=== PATIENT | female | born 1950 | race Caucasian/White ===

== ENCOUNTER 2017-08-26 05:37 | Inpatient (IN) ==
[2017-08-26] MEDS ORDERED: Bupivacaine/Epinephrine 0.5% Inj 50 ML Vial ONE (06:04)
[2017-08-26] MEDS ORDERED: ceFAZolin 2 GM Premix Inj 2 GM/50 ML PIGGYBACK IV.SIG ONE (06:05)
[2017-08-26] MEDS ORDERED: Vancomycin Inj 1 GM/200 ML PIGGYBACK IV.SIG ONE (06:08)
[2017-08-26] MEDS ORDERED: Metoprolol Tartrate 25 MG Tablet PO SCH (06:45)
[2017-08-26] MEDS ORDERED: Chlorhexidine Gluconate 2% 1 Pack (2 Cloths) TOPICAL SCH (06:45)
[2017-08-26] MEDS ORDERED: Sodium Chlor 0.9% Inj 40 ML, Bupivacaine Liposo PF 1.3% Inj 20 ML P-ARTICULR SCH ×2 (06:45)
[2017-08-26] MEDS ORDERED: Chlorhexidine 4% Topical 120 APPLIC/120 ML Bottle TOPICAL SCH (06:45)
[2017-08-26] MEDS ORDERED: TRANEXAMIC ACID IV.SIG SCH (07:00)
[2017-08-26] MEDS ORDERED: SODIUM CHLOR 0.9% IV.SIG SCH (07:00)
[2017-08-26] MEDS ORDERED: Vancomycin Inj 1 GM/200 ML PIGGYBACK IV.SIG SCH (07:00)
[2017-08-26] MEDS ORDERED: Sodium Chlor 0.9% Inj 500 ML IV.SIG SCH (07:00)
[2017-08-26] MEDS ORDERED: ceFAZolin 2 GM Premix Inj 2 GM/50 ML PIGGYBACK IV.SIG SCH (07:00)
[2017-08-26] MEDS ORDERED: Bupivacaine/Epinephrine Inj 0.25% 50 ML Vial ONE (07:30)
[2017-08-26] MEDS ORDERED: Temazepam 15 MG Capsule PO PRN (10:27)
[2017-08-26] MEDS ORDERED: Morphine Inj 4 MG/ML Vial IV.PUSH PRN (10:27)
[2017-08-26] MEDS ORDERED: Bisacodyl 10 MG Supp RECTAL PRN (10:27)
--- NOTE | 2017-08-26 10:36 | P.OP ---
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 Despite extensive conservative care this patient continues to be painful and now presents for surgical treatment. NOTE: Michaela Emmanuel PA-C was present for the entire surgical procedure as my engineer assistant. In my medical opinion her skill and care was necessary for the proper management of this patient. COMPONENTS: COMPANY: [employer] CUP: Scalf, 50 mm, 100 series, gription surface LINER: Altrx 32, neutral STEM: Corail, size 13, high offset, hydroxyapatite-coated HEAD: Ceramic, 32 mm, +1, 01/28 taper PROCEDURE: This patient was brought to the operating room and anesthetized in the supine position and positioned on the fracture table with both legs held extended. The left hip and leg was scrubbed with alcohol followed by Hibiclens followed by ChloraPrep and draped sterilely. Antibiotics were given within routine time window and a timeout was done. A 4 inch incision was made starting 2 cm distal and 2 cm lateral to the anterior superior iliac spine. The fascia gael was opened longitudinally. The interval between the fascia gael and the rectus was opened down to the capsule of the hip joint. Retractors were positioned allowing good visualization of the capsule. This was opened longitudinally and flaps were created. Stay sutures were utilized. Exposure was excellent. The neck was cut at the proper location using fluoroscopy as a guide. The head was removed. Deep retractors were positioned allowing good visualization of the acetabulum. Acetabulum was deepened down to the floor starting with a proper size reamer and reaming up to 49 mm. A trial was utilized. Fluoroscopy was used to check position and confirmed satisfactory alignment. The rim was reamed with a 50 mm reamer and the final cup was positioned in approximately 20 of anteversion and 40-45 of abduction. Position was satisfactory. A single hole eliminator was positioned followed by the final liner. The lifting hook was utilized. The leg was dropped to the floor, maximally externally rotated and brought across the midline. Retractors were positioned. A box osteotome was utilized followed by progressive broaching to the proper stem size. Trial reduction showed excellent alignment and fit. With 60 of external rotation the leg was dropped to the floor without evidence of anterior subluxation. The wound was irrigated. The final stem was inserted and was found to be very stable. The final reduction using the final head. Stability was as previously noted. Intraoperative x-rays were taken. The wound was irrigated copiously. Hemostasis was controlled. Local anesthesia was utilized. The capsule was repaired with #2 Tycron sutures. The fascia gael was repaired with running 0 PDS on a loop. Subcutaneous tissue was approximated with 2-0 Vicryl and skin with running intradermal 3-0 Vicryl followed by Steri-Strips. A sterile dressing was applied. The patient was awakened and taken to the recovery room in satisfactory condition. 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 The final solution appeared to be excellent. There was no complication that was appreciated.
--- NOTE | 2017-08-26 10:37 | P.DCO ---
- Physical Therapy Physical Therapy: Gait training Hip: Total hip, Protocol: Left - Nursing RN: 3 days/week x 2 weeks Nursing: Other Dressing changes: Do not change dressing - Certification Need for Home Health services: I have seen patient Mary Guerra on 08/26/17. My clinical findings support the need for the requested home health care services because: Need for Home Health Services: Limited mobility due to disease progression, High risk of falls Homebound Certification: I certify that my clinical findings support that this patient is homebound because: Homebound Certification: Unsteady gait/balance
[2017-08-26] MEDS ORDERED: Post-op Orders (for Pharmacy) OTHER STA (10:46)
[2017-08-26] MEDS ORDERED: *morphine SULFATE 4 MG/ML PERIprocedure ONLY ONE (10:55)
[2017-08-26] MEDS ORDERED: fentaNYL Citrate Inj 100 MCG/2 ML Ampul ONE (10:55)
[2017-08-26] MEDS ORDERED: *Meperidine Inj 25 MG/ML Vial PERIprocedural Use ONLY ONE (11:00)
[2017-08-26] MEDS ORDERED: Lidocaine PF 1% Inj 5 ML Syringe INFILTRATN ONE (12:00)
[2017-08-26] MEDS ORDERED: Phenylephrine/NS 1000 MCG/10ML Syringe IV.PUSH ONE (12:00)
[2017-08-26] MEDS ORDERED: Neostigmine Inj 5 MG/5 ML Syringe IV.PUSH ONE (12:00)
[2017-08-26] MEDS ORDERED: Glycopyrrolate Inj 1 MG/5 ML Syringe IV.PUSH ONE (12:00)
--- NOTE | 2017-08-26 13:56 | XR ---
EXAM DATE: 08/26/2017 1:49 PM EDT AGE/SEX: 67 years / Female INDICATIONS: Left total hip replacement. CLINICAL DATA: This is the patient's initial encounter. Patient reports that signs and symptoms have been present for 1 day and indicates a pain score of Nonresponsive. MEDICAL/SURGICAL HISTORY: None. None. COMPARISON: No prior exams available for comparison. FINDINGS: 2 views from the OR have been submitted. There is a bipolar hip prosthesis seen on the left side. Thi s appears well placed. CONCLUSION: Successful placement of a bipolar left hip prosthesis. Electronically signed by: Donny Nuñez MD 08/26/2017 1:54 PM EDT
[2017-08-26] MEDS: Multivitamin/Minerals Therapeutic Tablet PO SCH (21:24)
[2017-08-26] MEDS: Senna/Docusate Sodium 8.6/50 MG Tablet PO SCH (21:24)
[2017-08-27 07:11] LABS: Hematocrit 29.4 % (35.0-46.0); Hemoglobin 10.1 gm/dL (11.6-15.3)
--- NOTE | 2017-08-27 07:46 | P.PNOP ---
Subjective Interval history: No complaints. Lying in bed. Pain well controlled Physical Exam Vital signs: Vital Signs 08/26/17 10:45 08/26/17 11:00 08/26/17 11:15 Temperature 97.5 F L Pulse Rate 86 81 84 Respiratory Rate 16 16 16 Blood Pressure 112/55 L 102/51 L 99/50 L Pulse Oximetry 98 100 99 08/26/17 11:30 08/26/17 12:30 08/26/17 16:00 Temperature 97.3 F L Pulse Rate 77 78 80 Respiratory Rate 16 16 16 Blood Pressure 101/52 L 95/50 L 112/61 Pulse Oximetry 99 99 98 08/26/17 19:38 08/26/17 23:46 08/27/17 04:26 Temperature 98.7 F 97.9 F 98.3 F Pulse Rate 81 73 83 Respiratory Rate 18 18 18 Blood Pressure 104/58 L 97/54 L 108/59 L Pulse Oximetry 99 97 96 Intake & Output 08/26/17 08/27/17 08/27/17 18:59 06:59 18:59 Intake Total 2300 / 2300 580 / 580 Output Total 600 / 600 Balance 1700 / 1700 580 / 580 Weight 63.4 kg Intake: IV 100 / 100 100 / 100 Ancef Inj 1,000 MG In NS Inj 100 / 100 100 / 100 100 ML @ 200 mls/hr IV.SIG Q6H PAT Rx#:[id number] Oral 0 / 0 480 / 480 Anesthesia Amount 1999 / 1999 Other 200 / 200 Output: Urine 0 / 0 Estimated Blood Loss 600 / 600 Other: # Voids 4 # Bowel Movements 0 Narrative: Dressing dry. Loss of sensation around the incision and distal. No calf tenderness or abnormal swelling. Motor examination normal. Results - Labs CBC & Chem 7: 08/27/17 05:57 Laboratory Results - last 24 hr 08/27/17 05:57 Hgb 10.1 L Hct 29.4 L - Imaging Impressions Hip X-Ray 08/26/17 00:00 CONCLUSION: Successful placement of a bipolar left hip prosthesis. Assessment and Plan - Problem List (1) Osteoarthritis of left hip Code(s): M16.12 - Unilateral primary osteoarthritis, left hip Status: Acute - Assessment and Plan Osteoarthritis left hip/avascular necrosis. Surgery: Left MITA, anterior: POD #1. PLAN: Weightbearing as tolerated. Aspirin for anticoagulation. No dressing change. Pain medications written. Patient was on tramadol preoperatively and after first prescription will obtain further medications from her primary care physician. Follow-up in 2 weeks. Home health care/home physical therapy. Orthopedically stable
--- NOTE | 2017-08-27 08:02 | P.DS ---
Date of admission: 08/26/17 05:37 Primary care physician: Eduar Shannon MD Attending physician on discharge: Maged George Anticipated date of discharge: 08/27/17 Brief History from admission: Ms. Guerra has had a 5+ year history of left hip pain. She pursued conservative measures including overthecounter medications, home exercises, and cortisone injections. She took ibuprofen 800 mg. An MRI was performed of the hip and pelvis April 2017. X-ray showed advancing arthritis of the left hip. Eventually left total hip arthroplasty was recommended. The patient agreed. She now presents for the above procedure. DS: Diagnosis - Discharge Diagnosis (1) Osteoarthritis of left hip Status: Acute DS: Medications - Discharge Medications Prescriptions: hydrocodone-acetaminophen 1 tab PO Q4H PRN #42 tab PRN Reason: Pain DS: Summary Hospital Course: Surgical treatment was performed on the day of admission without complication. She recovered well in PACU and was transferred to the orthopaedic floor. Pain was controlled with IV and oral medications. She was compliant with physical therapy and all total joint precautions. After 1 day she found to be stable and discharged home with home health care. She was instructed to ice the operative site twice daily and to pursue a high fiber diet for 3-5 days. She was given Bailey 7.5mg for pain and ASA 81mg for dvt prophylaxis. - Time Spent with Patient Total time spent providing and/or coordinating discharge services: Less than 30 minutes Exam Vital signs: Vital Signs 08/26/17 10:45 08/26/17 11:00 08/26/17 11:15 Temperature 97.5 F L Pulse Rate 86 81 84 Respiratory Rate 16 16 16 Blood Pressure 112/55 L 102/51 L 99/50 L Pulse Oximetry 98 100 99 08/26/17 11:30 08/26/17 12:30 08/26/17 16:00 Temperature 97.3 F L Pulse Rate 77 78 80 Respiratory Rate 16 16 16 Blood Pressure 101/52 L 95/50 L 112/61 Pulse Oximetry 99 99 98 08/26/17 19:38 08/26/17 23:46 08/27/17 04:26 Temperature 98.7 F 97.9 F 98.3 F Pulse Rate 81 73 83 Respiratory Rate 18 18 18 Blood Pressure 104/58 L 97/54 L 108/59 L Pulse Oximetry 99 97 96 Intake & Output 08/26/17 08/27/17 08/27/17 18:59 06:59 18:59 Intake Total 2300 / 2300 580 / 580 Output Total 600 / 600 Balance 1700 / 1700 580 / 580 Weight 63.4 kg Intake: IV 100 / 100 100 / 100 Ancef Inj 1,000 MG In NS Inj 100 / 100 100 / 100 100 ML @ 200 mls/hr IV.SIG Q6H PAT Rx#:[id number] Oral 0 / 0 480 / 480 Anesthesia Amount 1999 Other 200 / 200 Output: Urine 0 / 0 Estimated Blood Loss 600 / 600 Other: # Voids 4 # Bowel Movements 0 Results Procedures completed during hospitalization: Left total hip arthroplasty, direct anterior approach Labs on day of discharge: Labs from last 24 hours 08/27/17 05:57 Hgb 10.1 L Hct 29.4 L - Impressions ITS Impressions Hip X-Ray 08/26/17 00:00 CONCLUSION: Successful placement of a bipolar left hip prosthesis. Discharge Plan - Discharge Disposition Patient Disposition: /Home Health Service - Discharge Condition Condition: Good - Discharge Order Discharge Orders: Discharge Order (Routine); Ordered 08/26/17 Ordered By: Maged George - Discharge Details Anticipated Discharge Date: 08/28/17 - Physicians Team Primary Care Provider: Eduar Shannon Attending Provider: Maged George - Rxs /Orders / Referrals /Forms Prescriptions: New hydrocodone-acetaminophen 7.5-325 mg Tablet 1 tab PO Q4H PRN (Reason: Pain) Qty: 42 RF: 0 Continue acetaminophen [Tylenol] 325 mg Tablet 650 mg PO Q8HR PRN (Reason: Pain) multivitamin Tablet 1 tab PO DAILY timolol maleate 0.5 % Drops 1 drp OPHTHALMIC (EYE) DAILY tramadol 50 mg Tablet 50 mg PO DAILY PRN (Reason: Pain) Discontinued ibuprofen 800 mg Tablet 800 mg PO BID PRN (Reason: Pain) Ambulatory Orders / Order Sets / DME: Walker With Front Wheels (1 each) (Routine) Location: Determined by Patient Ordered By: Maged George Referrals: Eduar Shannon MD [Primary Care Provider] - See Instructions - Discharge Instructions Patient Printed Instructions: Total Hip Replacement (DC) - Post Discharge Care Plan Care Plan Goals: Discharge Care Plan Goals for Total Hip Replacement You had a hip replacement surgery. This means your natural hip was replaced with an artificial joint (prosthesis). You may be recovering at home or in a rehabilitation facility. Either way, you must take care of your new hip. Here are some goals to help you heal well. Directions to Meet your Goals: 1. Activity & Exercises: * Take pain medicine as directed by your doctor. * Dont drive until your doctor says its OK. And never drive while taking opioid pain medicine. * Wear the support stockings you were given in the hospital as directed by your surgeon. * Dont sit for more than 30 to 45 minutes at one time. * Dont lean forward while sitting. * Dont cross your legs. * Keep your feet flat on the floor. Dont turn your foot or leg inward. This stresses your hip joint. * Use an elevated toilet seat for 6 weeks after surgery. * Nap if you are tired, but dont stay in bed all day. * Sit on a firm cushion when you ride in a car and avoid sitting too low. Try not to bend your hip too much when getting in and out of the car. 2. Prevent Falls/Injury: * Follow your doctors orders regarding how much weight to put on the affected leg. * Dont bend at the hip when you bend over. Don't bend at the waist to put on socks and shoes. And avoid picking up items from the floor. * Use a cane, crutches, a walker, or handrails until your balance, flexibility, and strength improve. And remember to ask for help from others when you need it. * Free up your hands so that you can use them to keep balance. Use a shilpa pack , apron, or pockets to carry things. * Arrange your household to keep the items you need handy. Keep everything else out of the way. * Remove items that may cause you to fall, such as throw rugs and electrical cords. * Use nonslip bath mats, grab bars, an elevated toilet seat, and a shower chair in your bathroom * Sit on a shower stool or chair when you shower to keep from falling. 3. Precautions: * Prevent infection. Any infection will need to be treated immediately. Call your doctor right away if you think you might have an infection. * Tell your dentist that you have an artificial joint and take antibiotics as prescribed before any dental work. * Tell all your healthcare providers about your artificial joint before any medical procedure. * Maintain a healthy weight. Get help to lose any extra pounds. Added body weight puts stress on the joints. 4. Incision Care: * Prevent infection by washing your hands often. If an infection occurs, it will need to be treated right away. * Call your doctor right away if you think you may have an infection. Symptoms include a fever or an incision that leaks white, green, or yellow fluid. * Don't soak your incision in water until your doctor says its OK. This means no hot tubs, bathtubs, or swimming pools. * Follow your doctor's instructions for changing the dressing. * Dont rub the incision, or apply creams or lotions to it. * If you notice any redness or drainage around the bandage site, contact your surgeon's office immediately. 5. Follow-Up: Do Not miss your follow-up appointment. Keep up with all your appointments and yearly check ups When to call your doctor: Call your doctor right away if you have: Hip pain gets worse Pain or swelling in your calf or leg not related to your incision Tenderness or redness in your calf Fever of 100.4F (38C) or higher, or as directed by your healthcare provider Shaking chills Swelling or redness at the incision site gets worse Fluid draining from the incision Call 911: Call 911 right away if you have: Chest pain Shortness of breath Any pain or tenderness in your calf
[2017-08-27] MEDS ORDERED: Timolol 0.5% Drops 5 ML Bottle EACH EYE SCH (09:00)
[2017-08-27] MEDS: Multivitamin/Minerals Therapeutic Tablet PO SCH (10:00)
[2017-08-27] MEDS: Senna/Docusate Sodium 8.6/50 MG Tablet PO SCH (10:00)
== END 2017-08-27 14:59 | disposition home health service (06) ==
LOC: HSDI 05:37 → N06 12:37
PROVIDERS: ADMIT Orthopaedic Surgery Orthopaedic Surgery of the Spine; ATTEND Orthopaedic Surgery Orthopaedic Surgery of the Spine